=== PATIENT | male | born 1980 | race Caucasian/White ===

== ENCOUNTER 2016-05-24 11:45 | Emergency (ER) | payer SELFPAY ==
[2016-05-24 11:49] VITALS: BP 130/66; PULSE 90; TEMP 97.7
[2016-05-24 12:23] VITALS: BMI 24.4
--- NOTE | 2016-05-24 12:26 | EDPRACDOC ---
- General Information Chief Complaint: Back Injury Stated Complaint: RT SIDE & BACK PAIN Time Seen by Provider: 05/24/16 12:22 Information Source: Patient Mode Of Arrival: Car Home Medications: Home Medications No Home Medications 05/24/16 Allergies/Adverse Reactions: Allergies Allergy/AdvReac Type Severity Reaction Status Date / Time codeine [Codeine] Allergy Anaphylaxis Verified 05/24/16 12:21 * - History of Present Illness Onset: 5 days HPI: PT STATES HE INJURED HIS BACK AT WORK TUESDAY, STATES HIS BOSS MADE HIM GO HOME , PT WAS OUT OF WORK TUESDAY, STATES PAIN IS COMPLETELY GONE NOW, WENT BACK TO WORK TODAY, STATES THAT HE WAS TOLD HE MUST HAVE A WORK NOTE TO COME BACK TO WORK. PT STATES JUST NEEDS A WORK NOTE, NO PAIN AT ALL TODAY. Pain Location: Reports: Right, Lumbar Pain Radiates To: Reports: None Pain Caused By: Reports: Bending Circumstances: Reports: Work-related Relevant History: Reports: None Pain Severity: Reports: Mild Pain Quality: Reports: Aching Worsened By: Reports: Movement, Twisting Associated Signs and Symptoms: Reports: None ED Past Medical History - History Reviewed Yes Nurses notes reviewed and agree except as marked No Past Medical History: Yes Patient has no past medical history - Patient Medical History Psychological History: Denies: Depression - Social Medical History Smoking Status: Heavy tobacco smoker (5 or more cigarettes/day or daily pipe/ cigar) EDM Review of Systems - Review of Systems Genitourinary: negative: Dysuria, Frequency Neurological: negative: Dizziness, Headache, Numbness, Weakness Musculoskeletal: Back Integumentary: No Symptoms Reported - Physical Exam Constitutional: Alert (Awake), No apparent distress Oriented to: Time, Person, Place Last recorded Vital Signs: Last Vital Signs Temp 97.7 F 05/24/16 11:45 Pulse 90 05/24/16 11:45 Resp 18 05/24/16 11:45 BP 130/66 05/24/16 11:45 Pulse Ox 98 05/24/16 11:45 Oxygen Pulse Oxygen Saturation 98 O2 Device Room Air Oxygen Flow Rate Fraction of Inspired Oxygen ( FIO2) - HEENT Head: Normal ( normocephalic) - Integumentary Skin: Normal, Warm, Dry Lymphatics: Normal (no adenopathy) - Neurologic Memory Impaired: Normal Motor Function: Normal (Normal tone, Pulses 2+ No cyanosis or edema, FROM) Cranial Nerve: Normal (CN II-X11 intact sensation, strength 5/5) Cerebellar: Normal Mood Description: Normal Perception: Normal ED Back Exam - Neurologic Motor Deficit: None - Musculoskeletal Cervical: Normal Thoracic: Normal Lumbar: Normal Midline: Normal Paraspinous: Normal Straight Leg Raise: Negative Pelvis: Normal - Differential Diagnosis DJD, HNP, Musculoskeletal pain, Strain Decision Time to Discharge: 12:26 - Departure Disposition: Home Condition: Stable Final Diagnosis: Low back pain Qualifiers: Chronicity: acute Back pain laterality: right Sciatica presence: without sciatica Qualified Code(s): M54.5 - Low back pain Instructions: Acute Low Back Pain (ED) Education/Counseling Given To: Patient Education/Counseling Given Regarding: Diagnosis, Treatment, Prognosis, Follow Up Referrals: None,No Provider [Primary Care Provider] - One Week Prescriptions: No Action No Home Medications 0 NA DIR #0 info Forms: Excuse Note Additional Instructions: RETURN TO THE ED FOR ANY WORSENING SYMPTOMS OR CONCERNS.
== END 2016-05-24 12:40 | disposition home or self-care (01) ==
LOC: EDMC 11:45
DX: M54.5 Low back pain (principal); F17.200 Nicotine dependence, unspecified, uncomplicated
CPT/HCPCS: 99282